=== PATIENT | male | born 1945 | race Two or more races ===

== ENCOUNTER 2022-12-01 16:33 | Emergency (ER) | payer OTHER ==
[~2022-12-01] VITALS: Ht 167.6 cm; Wt 62.6 kg
[~2022-12-01 16:33] MED LIST: ATACAND4 MG; CLONAZEPAM1 MG PO; CRESTOR40 MG; LEXAPRO20 MG PO; METOPROLOL SUCC25 MG PO; NEXIUM40 MG/PACK; RIVASTIGMINE3 MG PO; ROPINIROLE HCL2 M1 PO; RYTARY ER 48.71 EACH PO
== END 2022-12-01 20:21 | disposition home or self-care (01) ==
LOC: ER 16:33
DX: T81.41XA Infection following a procedure, superficial incisional surgical site, initial encounter (principal); Z88.6 Allergy status to analgesic agent; L08.9 Local infection of the skin and subcutaneous tissue, unspecified

== ENCOUNTER 2023-02-18 22:29 | Emergency (ER) | payer OTHER ==
[~2023-02-18] VITALS: Ht 167.6 cm; Wt 64.4 kg
[2023-02-19] MEDS ORDERED: RYTARY ER 61.21 EACH PO (00:05)
[2023-02-19] MEDS ORDERED: ESCITALOPRAM OX20 MG PO (00:06)
[2023-02-19] MEDS ORDERED: ROSUVASTATIN CA40 MG PO (00:06)
[2023-02-19] MEDS ORDERED: RIVASTIGMINE4.5 MG PO (00:06)
== END 2023-02-19 03:27 | disposition home or self-care (01) ==
LOC: ER 22:29
DX: S00.83XA Contusion of other part of head, initial encounter (principal); W18.39XA Other fall on same level, initial encounter; Y93.89 Activity, other specified; Y92.89 Other specified places as the place of occurrence of the external cause; G20.A1 Parkinson's disease without dyskinesia, without mention of fluctuations; I10 Essential (primary) hypertension; Z88.6 Allergy status to analgesic agent

== ENCOUNTER 2024-11-17 19:47 | Emergency (ER) | payer OTHER ==
[~2024-11-17] VITALS: Ht 167.6 cm; Wt 59.0 kg
[~2024-11-17 19:47] MED LIST changes: +ESCITALOPRAM OX20 MG PO; +RIVASTIGMINE4.5 MG PO; +ROSUVASTATIN CA40 MG PO; +RYTARY ER 61.21 EACH PO
[2024-11-17] MEDS ORDERED: TETANUS & DIPHTHERIA TOX,ADULT 0.5 ML VIAL IM STA (20:45)
[2024-11-18] MEDS ORDERED: CEPHALEXIN250 MG/5 M PO (00:58)
== END 2024-11-18 01:52 ==
LOC: ER 20:17
DX: S01.311A Laceration without foreign body of right ear, initial encounter (principal); W18.39XA Other fall on same level, initial encounter; Y93.K1 Activity, walking an animal; Y92.098 Other place in other non-institutional residence as the place of occurrence of the external cause; Y99.9 Unspecified external cause status; I10 Essential (primary) hypertension; G20.A1 Parkinson's disease without dyskinesia, without mention of fluctuations; Z88.6 Allergy status to analgesic agent; Z91.013 Allergy to seafood